=== PATIENT | female | born 2000 | race Caucasian/White ===

== ENCOUNTER 2024-07-22 10:55 | Inpatient (IN) | payer BC ==
[2024-07-22] MEDS ORDERED: Sodium Chloride 0.9% 10 ML Syringe FLUSH PRN (11:07)
[2024-07-22] MEDS ORDERED: Ondansetron 4 MG/2 ML SDV IVPUSH PRN (11:07)
[2024-07-22] MEDS ORDERED: Nalbuphine 10 MG/1 ML Vial IVPUSH PRN (11:07)
[2024-07-22] MEDS ORDERED: Lidocaine 1% 50 ML MDV INJECT PRN (11:07)
[2024-07-22] MEDS ORDERED: Oxytocin/0.9 % Sodium Chloride 30 UNIT/500 ML BAG IV SCH (11:15)
[2024-07-22 11:38] LABS: BASOPHILS PERCENT AUTO 0.2 % (0.0-1.0); EOSINOPHILS ABSOLUTE AUTO 0.1 K/mm3 (0.0-0.4); EOSINOPHILS PERCENT AUTO 0.4 % (0.0-6.0); HEMATOCRIT 41.8 % (37.0-47.0); HEMOGLOBIN 13.7 gm/dl (12.0-16.0); IMMATURE GRAN ABSOLUTE AUTO 0.06 K/mm3 (0.00-0.05); IMMATURE GRAN PERCENT AUTO 0.5 % (0.0-0.4); LYMPHOCYTES ABSOLUTE AUTO 1.8 K/mm3 (1.0-4.8); LYMPHOCYTES PERCENT AUTO 14.2 % (24.0-44.0); MEAN CORPUSCULAR HEMOGLOBIN 27.2 pg (28.0-32.0); MEAN CORPUSCULAR HGB CONC 32.8 g/dl (32.0-36.0); MEAN CORPUSCULAR VOLUME 83.1 fl (83.0-99.0); MEAN PLATELET VOLUME 10.1 fl (9.4-12.3); MONOCYTES ABSOLUTE AUTO 0.5 K/mm3 (0.0-0.8); MONOCYTES PERCENT AUTO 4.2 % (0.0-8.0); NEUTROPHILS ABSOLUTE AUTO 9.9 K/mm3 (1.8-7.7); NEUTROPHILS PERCENT AUTO 80.5 % (41.0-71.0); PLATELET COUNT,PLT 258 K/mm3 (150-400); RED BLOOD CELL COUNT 5.03 M/mm3 (4.10-5.30); WHITE BLOOD CELL COUNT,WBC 12.33 K/mm3 (3.9-11.3)
[2024-07-22] MEDS: Misoprostol 25 MCG (1/4 of 100 MCG) Tab VAG SCH (11:55)
[2024-07-22 12:00] LABS: CREATININE 0.7 mg/dL (0.55-1.02); EST CRCL DRUG DOSING (CG) 92.71 mL/min; URIC ACID 4.9 mg/dL (2.6-6.0)
[2024-07-22 14:44] LABS: CREATININE,URINE RAND 49.3 mg/dL (30.0-125.0); PROTEIN CREATININE RATIO,URINE 387.4 mg/g (0-149); PROTEIN,URINE RANDOM 19.1 mg/dL (0.0-11.8)
[2024-07-22] MEDS: Lactated Ringers 1,000 ML IV SCH (22:57)
[2024-07-22] MEDS ORDERED: ePHEDrine 50 MG/ML SDV IVPUSH PRN (23:42)
[2024-07-22] MEDS ORDERED: diphenhydrAMINE 50 MG/ML SDV IVPUSH PRN (23:42)
[2024-07-23] MEDS ORDERED: Bupivacaine 0.25% 10 ML SDV ONE
[2024-07-23] MEDS: fentaNYL 100 MCG/2 ML SDV EPIDUR PRN (00:06)
[2024-07-23] MEDS: Bupivacaine/fentaNYL/NS 100 ML Bag EPIDUR PRN (00:06)
[2024-07-23] MEDS: Oxytocin/0.9 % Sodium Chloride 30 UNIT/500 ML BAG IV SCH (01:42)
[2024-07-23] MEDS: Sodium Chloride 0.9% 10 ML Syringe FLUSH SCH (11:21)
[2024-07-23] MEDS ORDERED: dexmedeTOMIDine HCl 200 MCG/2 ML SDV ONE (14:03)
[2024-07-23] MEDS ORDERED: Ondansetron 4 MG/2 ML SDV ONE (14:03)
[2024-07-23] MEDS ORDERED: Lidocaine 2% with EPINEPHrine 1:200,000 20 ML SDV ONE ×2 (14:03)
[2024-07-23] MEDS ORDERED: Sodium Chloride 0.9% 10 ML Syringe FLUSH PRN (14:08)
[2024-07-23] MEDS ORDERED: Lactated Ringers 1,000 ML IV SCH (14:15)
[2024-07-23] MEDS: Citric Acid/Sodium Citrate Solution 30 ML Cup PO ONE (14:22)
[2024-07-23] MEDS: Azithromycin 500 MG in Sodium Chloride 0.9% 250 ML IV ONE (14:25)
[2024-07-23] MEDS ORDERED: ceFAZolin 2 GM Vial ONE (14:51)
[2024-07-23] MEDS ORDERED: Propofol 200 MG/20 ML SDV ONE (15:03)
[2024-07-23] MEDS ORDERED: Ketamine 500 mg/10 ML MDV ONE (15:04)
[2024-07-23] MEDS ORDERED: Lactated Ringers 1,000 ML ONE (15:24)
[2024-07-23] MEDS ORDERED: Ketorolac 30 MG/ML SDV ONE (15:30)
[2024-07-23] MEDS ORDERED: Ropivacaine 0.5% 5 MG/ML 30 ML SDV ONE (15:43)
[2024-07-23] MEDS ORDERED: Sodium Chloride 0.9% 50 ML SDV ONE (15:43)
[2024-07-23] MEDS ORDERED: Meperidine 50 MG/ML Vial IVPUSH PRN (16:13)
[2024-07-23] MEDS ORDERED: Ondansetron 4 MG/2 ML SDV IVPUSH PRN (16:13)
[2024-07-23] MEDS ORDERED: diphenhydrAMINE 50 MG/ML SDV IVPUSH PRN ×2 (16:13→17:51)
[2024-07-23] MEDS ORDERED: fentaNYL 100 MCG/2 ML SDV IVPUSH PRN (16:13)
[2024-07-23] MEDS ORDERED: ePHEDrine 50 MG/ML SDV IVPUSH PRN (17:51)
[2024-07-23] MEDS ORDERED: Acetaminophen/oxyCODONE 325-5 MG Tab PO PRN ×2 (17:51)
[2024-07-23] MEDS ORDERED: Naloxone 0.4 MG/ML SDV IVPUSH PRN (17:51)
[2024-07-23] MEDS: Metoclopramide 10 MG/2 ML SDV IVPUSH ONE (19:39)
[2024-07-23] MEDS: Ketorolac 30 MG/ML SDV IVPUSH SCH (20:54)
[2024-07-23] MEDS ORDERED: Sodium Chloride 0.9% 10 ML Syringe FLUSH SCH (21:00)
[2024-07-23] MEDS: Dextrose 5%-Lactated Ringers 1,000 ML IV SCH (21:43)
[2024-07-24 07:12] LABS: BASOPHILS PERCENT AUTO 0.1 % (0.0-1.0); EOSINOPHILS PERCENT AUTO 0.1 % (0.0-6.0); HEMATOCRIT 28.1 % (37.0-47.0); IMMATURE GRAN ABSOLUTE AUTO 0.09 K/mm3 (0.00-0.05); IMMATURE GRAN PERCENT AUTO 0.5 % (0.0-0.4); LYMPHOCYTES ABSOLUTE AUTO 1.5 K/mm3 (1.0-4.8); LYMPHOCYTES PERCENT AUTO 8.3 % (24.0-44.0); MEAN CORPUSCULAR HEMOGLOBIN 27.3 pg (28.0-32.0); MEAN CORPUSCULAR HGB CONC 32.7 g/dl (32.0-36.0); MEAN CORPUSCULAR VOLUME 83.4 fl (83.0-99.0); MONOCYTES PERCENT AUTO 5.4 % (0.0-8.0); NEUTROPHILS ABSOLUTE AUTO 15.6 K/mm3 (1.8-7.7); NEUTROPHILS PERCENT AUTO 85.6 % (41.0-71.0); PLATELET COUNT,PLT 252 K/mm3 (150-400); RED BLOOD CELL COUNT 3.37 M/mm3 (4.10-5.30); WHITE BLOOD CELL COUNT,WBC 18.15 K/mm3 (3.9-11.3)
[2024-07-24 07:15] LABS: HEMOGLOBIN 9.2 gm/dl (12.0-16.0)
[2024-07-24] MEDS: Ibuprofen 600 MG Tab PO SCH (09:36)
== END 2024-07-24 13:27 | disposition home or self-care (01) | DRG 540 ==
LOC: JD.OBCHECK 10:55 → JD.OB 11:00 → JD.OBCHECK 11:06 → JD.OB 11:07 → OBSVTOIN 07-23 15:07 → JD.OB 07-23 15:08
PROVIDERS: ADMIT Obstetrics & Gynecology; ATTEND Obstetrics & Gynecology
PROC: 10H07YZ Insertion of Other Device into Products of Conception, Via Natural or Artificial Opening (ICD-10-PCS; principal; 2024-07-23 14:30)
PROC: 10907ZC Drainage of Amniotic Fluid, Therapeutic from Products of Conception, Via Natural or Artificial Opening (ICD-10-PCS; principal; 2024-07-23 14:30)
PROC: 10D00Z1 Extraction of Products of Conception, Low, Open Approach (ICD-10-PCS; principal; 2024-07-23 14:30)
DX: O99.214 Obesity complicating childbirth (principal); O14.94 Unspecified pre-eclampsia, complicating childbirth; O13.4 Gestational [pregnancy-induced] hypertension without significant proteinuria, complicating childbirth; O99.52 Diseases of the respiratory system complicating childbirth; Z90.49 Acquired absence of other specified parts of digestive tract; Z79.82 Long term (current) use of aspirin; Z79.899 Other long term (current) drug therapy; Z3A.39 39 weeks gestation of pregnancy; Z37.0 Single live birth; Z88.0 Allergy status to penicillin; J45.909 Unspecified asthma, uncomplicated
CPT/HCPCS: 01967; 01968; 36415; 51702; 59025; 64488; 82565; 82570; 83615; 84156; 84450; 84460; 84520; 84550; 85025; 86592; 86850; 86900; 86901; 99140; A9270-GY; J0456; J0665; J0690; J1885; J2405; J2704; J2795; J3010; J3490; J7050; J7120; J7121; J7999